=== PATIENT | male | born 1935 ===

== ENCOUNTER → 2018-06-20 | Day surgery (SDC) | payer OTHER | END | disposition home or self-care (01) | LOC: AMB-ENDOS 09:37 | DX: G20 Parkinson's disease (principal); R13.14 Dysphagia, pharyngoesophageal phase ==

== ENCOUNTER 2020-11-10 10:52 | Emergency (ER) | payer OTHER ==
[~2020-11-10] VITALS: Ht 175.3 cm; Wt 65.8 kg
== END 2020-11-10 19:37 | disposition home or self-care (01) ==
LOC: ER 10:52
DX: K94.13 Enterostomy malfunction (principal); R13.14 Dysphagia, pharyngoesophageal phase; G20 Parkinson's disease